=== PATIENT | male | born 1970 | race Caucasian/White ===

== ENCOUNTER 2019-12-07 19:23 | Emergency (ER) | payer BC, MEDICAID ==
[2019-12-07] MEDS ORDERED: IBUPROFEN 800 MG TABLET PO STA (19:44)
--- NOTE | 2019-12-07 20:03 | ED Physician Documentation ---
History of Present Illness - Stated complaint Stated Complaint: GLF,WRIST PX,RT RIB PX - Chief complaint Chief Complaint: Trauma Ext - History obtained from History obtained from: Patient - History of Present Illness Timing: Today, How many hours ago (2) Pain level max: 9 Pain level now: 9 - Additonal information Additional information: 49-year-old male presents to the emergency department stating that he was walking his dog today when a deer ran by, the dog pulled and he fell down onto the ground. Complains of pain to the left wrist, right ribs and struck the left side of his head on the pavement. Unsure if he lost consciousness or not. No seizures. No vomiting. Worse with movement and better with rest. Ambulatory since the event. No numbness or tingling. Has not taken anything for pain. Tetanus is up-to-date. Review of Systems Constitutional: denies: Fever, Chills Throat: denies: Sore throat Cardiac: denies: Palpitations Respiratory: denies: Dyspnea, Cough, Hemoptysis, Wheezing GI: denies: Abdominal Pain, Nausea, Vomiting, Diarrhea : denies: Dysuria Skin: denies: Rash Musculoskeletal: denies: Neck pain, Back pain Neurologic: reports: Headache. denies: Focal weakness, Numbness, Seizure, Altered mental status PD PAST MEDICAL HISTORY - Past Medical History Past Medical History: No - Past Surgical History Past Surgical History: No - Present Medications Home Medications: Ambulatory Orders Medication Instructions Recorded Confirmed cephALEXin [Keflex] 500 mg PO Q6H #28 capsule 03/06/14 HYDROcod/ACETAM 5/325 [[place] 5/325] 1 - 2 ea PO Q6H PRN #10 tablet 12/07/19 Lidocaine Patch 5% [Lidoderm Patch] 1 patch TOP DAILY PRN #10 patch 12/07/19 - Allergies Allergies/Adverse Reactions: Allergies Allergy/AdvReac Type Severity Reaction Status Date / Time No Known Drug Allergies Allergy Verified 12/07/19 19:26 - Living Situation Living Situation: reports: With family Living Arrangement: reports: At home - Social History Does the pt smoke?: No Smoking Status: Never smoker Does the pt drink ETOH?: No Does the pt have substance abuse?: No - Immunizations Immunizations are current?: Yes PD ED PE NORMAL - Vitals Vital signs reviewed: Yes - General General: Alert and oriented X 3, No acute distress - HEENT HEENT: Moist mucous membranes, Other (Mild abrasion to the left judaism, mild swelling. Tenderness palpation at the site. Poor dentition throughout his mouth. No bleeding. No lacerations) - Neck Neck: Supple, no meningeal sign, No bony TTP - Cardiac Cardiac: RRR, Strong equal pulses - Respiratory Respiratory: No respiratory distress, Clear bilaterally - Abdomen Abdomen: Soft, Non tender, Non distended - Derm Derm: Warm and dry - Extremities Extremities: Other (Normal examination of the right wrist. Left wrist has mild tenderness palpation over the dorsum of the wrist. No snuffbox tenderness. Full range of motion. Pain is worse with active range of motion. Neurovascularly intact. Otherwise normal examination of the extremities.) - Neuro Neuro: Alert and oriented X 3 - Free text exam Free text exam: Tender to palpation over the right anterior ribs, approximately 5 through 7. No crepitus. No ecchymosis. Results - Vitals Vitals: Vital Signs - 24 hr 12/07/19 12/07/19 19:26 21:15 Temperature 36.6 C Heart Rate 71 70 Respiratory 16 16 Rate Blood Pressure 170/90 H 143/90 H O2 Saturation 98 99 Oxygen O2 Source Room air - Rads (name of study) R ribs w/ cxr Radiology: Prelim report reviewed, EMP read contemporaneously, See rad report (no acute findings) CT head Radiology: Prelim report reviewed, EMP read contemporaneously, See rad report (no acute findings) L wrist xray Radiology: Prelim report reviewed, EMP read contemporaneously, See rad report (no acute findings) PD MEDICAL DECISION MAKING - ED course Complexity details: reviewed results, re-evaluated patient, considered differential, d/w patient, d/w family ED course: No acute findings on x-rays and CT scans. Given a Lidoderm patch. Does not want any pain medication stronger than Motrin here. Ambulating well. No pneumothorax. Hemothorax. Possible cracked ribs. Appears to have a left wrist sprain as well. Patient counseled regarding signs and symptoms for which I believe and urgent re-evaluation would be necessary. Patient with good understanding of and agreement to plan and is comfortable going home at this time This document was made in part using voice recognition software. While efforts are made to proofread this document, sound alike and grammatical errors may occur. Departure - Departure Disposition: 01 Home, Self Care Clinical Impression: Contusion of rib on right side Qualifiers: Encounter type: initial encounter Qualified Code(s): S20.211A - Contusion of right front wall of thorax, initial encounter Contusion of wrist, left Qualifiers: Encounter type: initial encounter Qualified Code(s): S60.212A - Contusion of left wrist, initial encounter Head injury Qualifiers: Encounter type: initial encounter Qualified Code(s): S09.90XA - Unspecified injury of head, initial encounter Fall Qualifiers: Encounter type: initial encounter Qualified Code(s): W19.XXXA - Unspecified fall, initial encounter Condition: Good Instructions: ED Head Injury Closed, ED Contusion Vs Minor Fx Rib Follow-Up: Kat Palomino ARNP [Primary Care Provider] - Within 1 week Prescriptions: Lidocaine Patch 5% [Lidoderm Patch] 1 patch TOP DAILY PRN #10 patch PRN Reason: pain HYDROcod/ACETAM 5/325 [[place] 5/325] 1 - 2 ea PO Q6H PRN #10 tablet PRN Reason: Pain Comments: Return if you worsen. Follow-up with your doctor in 1 week for repeat evaluation. Do not drink alcohol or drive while on narcotic pain medicine. Note that many narcotic pain relievers also contain tylenol/acetaminophen. Please ensure that your total dose of acetaminophen from all sources does not exceed 3 grams (3000mg) per day. You may constipated on this medication, take a stool softener such as "Colace" twice a day while you are on it. Also recommend a qzhi-wgg-hlabvhu laxative such as senna or MiraLAX any day that you do not have a bowel movement. If you received narcotic pain medication in the emergency department, do not drive or operate machinery for the next 24 hours. Discharge Date/Time: 12/07/19 21:15
--- NOTE | 2019-12-07 20:18 | CT Report ---
PROCEDURE: HEAD WO INDICATIONS: Fall, head injury TECHNIQUE: Noncontrast 4.5 mm thick angled axial sections acquired from the foramen magnum to the vertex. For r adiation dose reduction, the following was used: automated exposure control, adjustment of mA and/or kV according to patient size. COMPARISON: None. FINDINGS: Image quality: Excellent. CSF spaces: Basal cisterns are patent. No extra-axial fluid collections. Ventricles are normal in size and shape. Brain: No midline shift. No intracranial masses or hemorrhage. Ruano-white matter interface is norm al. Skull and face: Calvarium and visualized facial bones are intact, without suspicious lesions. Sinuses: Bilateral maxillary sinus mucous retention cysts and mucosal thickening with bony thickening indicating chronic sinusitis. IMPRESSION: No acute intracranial abnormality. Reviewed by: Javier De Souza MD on 12/07/2019 8:16 PM PDT Approved by: Javier De Souza MD on 12/07/2019 8:16 PM PDT Station ID: [id number]
--- NOTE | 2019-12-07 20:48 | XRAY Report ---
PROCEDURE: Ribs w/PA Chest RT INDICATIONS: fall, R ribs injury TECHNIQUE: 2 views of the right ribs were acquired, along with a single view chest. COMPARISON: None FINDINGS: Surgical changes and devices: None. Bones and chest wall: No fractures or dislocations. No suspicious bony lesions. Overlying soft tis sues appear unremarkable. Lungs and pleura: No pleural effusions or pneumothorax. Lungs appear clear. Mediastinum: Mediastinal contours appear normal. Heart size is normal. IMPRESSION: No acute findings demonstrated. Reviewed by: Javier De Souza MD on 12/07/2019 8:46 PM PDT Approved by: Javier De Souza MD on 12/07/2019 8:46 PM PDT Station ID: [id number]
--- NOTE | 2019-12-07 20:49 | XRAY Report ---
PROCEDURE: Wrist 4 View LT INDICATIONS: Fall, left wrist injury and pain TECHNIQUE: 4 views of the wrist were acquired. COMPARISON: None FINDINGS: Bones: No fractures or dislocations. No suspicious bony lesions. Scaphoid view: No scaphoid fracture. Normal scapholunate interval. Soft tissues: No suspicious soft tissue calcifications. IMPRESSION: No acute finding. Reviewed by: Javier De Souza MD on 12/07/2019 8:47 PM PDT Approved by: Javier De Souza MD on 12/07/2019 8:47 PM PDT Station ID: [id number]
[2019-12-07] MEDS ORDERED: LIDOCAINE PATCH 5% TOP STA (20:57)
[2019-12-07 21:15] VITALS: BP 143/90
== END 2019-12-07 21:15 | disposition home or self-care (01) ==
LOC: ED 19:23
DX: S60.212A Contusion of left wrist, initial encounter (principal); S20.211A Contusion of right front wall of thorax, initial encounter; S09.90XA Unspecified injury of head, initial encounter; S00.81XA Abrasion of other part of head, initial encounter; W54.8XXA Other contact with dog, initial encounter; W01.0XXA Fall on same level from slipping, tripping and stumbling without subsequent striking against object, initial encounter; Y93.K1 Activity, walking an animal
CPT/HCPCS: 70450; 71101; 73110; 99284; A9270